=== PATIENT | male | born 1975 ===

== ENCOUNTER 2016-10-15 19:04 | Emergency (ER) | payer OTHER ==
[2016-10-15 19:05] VITALS: BMI 27.8
[2016-10-15 19:46] VITALS: TEMP 98.3; O2SAT 100
--- NOTE | 2016-10-15 20:33 | ED PDOC ---
Arrival/HPI - History of Present Illness Time/Duration: > month Symptom Onset: Gradual Symptom Course: Unchanged Quality: Other (tenderness) Severity Level: 6 Activities at Onset: Rest Context: Sitting <Naun Lockett - Last Filed: 10/15/16 21:39> - General Historian: Patient <Dunia Holland - Last Filed: 10/15/16 22:08> - General Chief Complaint: Abdominal Pain Time Seen by Provider: 10/15/16 19:38 - History of Present Illness Narrative History of Present Illness (Text): 10/15/16 20:33 This is a 41 yr old male with no significant past medical history who comes into [facility] complaining of tenderness and the "sensation of hardening" over the incision sites of his bilateral inguinal hernia repair. The patient is 2 months s/p bilateral inguinal repair with mesh implant reporting no improvement in pain since his surgery. The patient denies any alleviating or modifying factors. The patient denies any fever, chills, nausea , vomiting, chest pain, shortness of breath, discharge from the incision sites, redness or warmth from the incision sites and any other complaints. (Naun Lockett) Past Medical History - Provider Review Nursing Documentation Reviewed: Yes - Infectious Disease Hx of Infectious Diseases: None - Pulmonary Hx Respiratory Disorders: Yes Hx Asthma: Yes (NEVER HOSPITALIZED( "NO NEB. [place] IN AT LEAST A YEAR")) - Musculoskeletal/Rheumatological Hx Musculoskeletal Disorders: Yes Other/Comment: HX: INGUINAL HERNIA-BILAT. - Psychiatric Hx Substance Use: No - Surgical History Other/Comment: Hernia Repair August 05 - Anesthesia Hx Anesthesia: No <Naun Lockett - Last Filed: 10/15/16 21:39> Family/Social History - Physician Review Nursing Documentation Reviewed: Yes Smoking Status: Never Smoked Hx Alcohol Use: Yes Frequency of alcohol use: Socially Hx Substance Use: No <Naun Lockett - Last Filed: 10/15/16 21:39> Family/Social History: No Known Family HX <Dunia Holland - Last Filed: 10/15/16 22:08> Allergies/Home Meds <Naun Lockett - Last Filed: 10/15/16 21:39> <Dunia Holland - Last Filed: 10/15/16 22:08> Allergies/Adverse Reactions: Allergies SEAFOOD Allergy (Severe, Uncoded 07/31/16 08:23) SWELLING Home Medications: Home Meds Medication Instructions Recorded Confirmed Albuterol 0.083% [Albuterol 0.083% 3 ml NEB Q6 PRN 07/31/16 10/15/16 Inhal Jaki (2.5 mg/3 ml) UD] Review of Systems - Review of Systems Constitutional: Normal. absent: Weight Change, Fevers, Night Sweats Eyes: Normal. absent: Vision Changes, Eye Pain ENT: Normal. absent: Tinnitus, Sore Throat Respiratory: Normal. absent: Cough, Sputum, Wheezing Cardiovascular: Normal. absent: Chest Pain, Palpitations, Edema Gastrointestinal: Normal. absent: Constipation, Diarrhea, Nausea, Vomiting Genitourinary Male: Normal. absent: Frequency, Hematuria Musculoskeletal: Other (reports tenderness at the incision sites of his bilaeral inguinal repair). absent: Normal, Back Pain, Neck Pain Skin: Normal. absent: Rash, Skin Lesions, Laceration Neurological: Normal. absent: Headache, Dizziness Endocrine: Normal. absent: Polyuria, Polydipsia <Naun Lockett - Last Filed: 10/15/16 21:39> - Physician Review All systems were reviewed & negative as marked: Yes <Dunia Holland - Last Filed: 10/15/16 22:08> Physical Exam Vital Signs Reviewed: Yes Temperature: Afebrile Blood Pressure: Normal Pulse: Regular Respiratory Rate: Normal Appearance: Positive for: Well-Appearing, Non-Toxic, Comfortable Pain Distress: None Mental Status: Positive for: Alert and Oriented X 3 - Systems Exam Head: Present: Atraumatic, Normocephalic Pupils: Present: PERRL Extroacular Muscles: Present: EOMI. No: Gaze Palsy Conjunctiva: Present: Normal. No: Injected Mouth: Present: Moist Mucous Membranes. No: Drooling Neck: Present: Normal Range of Motion. No: JVD, Lymphadenopathy Respiratory/Chest: Present: Clear to Auscultation, Good Air Exchange. No: Respiratory Distress, Accessory Muscle Use, Wheezes Cardiovascular: Present: Regular Rate and Rhythm, Normal S1, S2. No: Bradycardic Abdomen: Present: Tenderness (appreciated bilaterally at inguinal repair incision sites. no discharge/erythema noted at incision sites.), Normal Bowel Sounds. No: Distention Upper Extremity: Present: Normal Inspection. No: Cyanosis, Edema Lower Extremity: No: Edema, Tenderness, Swelling Neurological: Present: CN II-XII Intact, Speech Normal Skin: Present: Dry, Normal Color. No: Warm, Rashes Psychiatric: Present: Alert, Oriented x 3, Normal Insight <Naun Lockett - Last Filed: 10/15/16 21:39> Medical Decision Making <Naun Lockett - Last Filed: 10/15/16 21:39> <Dunia Holland - Last Filed: 10/15/16 22:08> ED Course and Treatment: 10/15/16 20:49 Patient presents to [facility] complaining of tenderness at the incision site of the inguinal hernia repair. We ordered a CT scan and U/A. The patient will be re-evaluated once results return. Patient given IM Toradol for pain. U/A came back normal. CT Scan showed incidental findings. Overall Normal. (Naun Lockett) 10/15/16 21:39 Patient Seen With Resident: In agreement with resident note which contains more details about the patient. Patient was seen and evaluated with resident. Came up with plan and treatment together. 10/15/16 22:05 Patient with unremarkable post-op site; urine is clear. No tenderness on exam. CT a/p: Postsurgical changes of inguinal regions with small collections. DDX: Seroma, hematoma, less likely abscess. CT results as above - patient given toradol and feels significant relief. Will d/c on naprosyn to follow up his surgeon and will give name of on-call surgeon for referral for second opinion. Ok for d/c. (Dunia Holland) - Lab Interpretations Lab Results: Lab Results 10/15/16 20:35: Urine Color Yellow, Urine Appearance Clear, Urine pH 6.5, Ur Specific Boyle 1.020, Urine Protein Negative, Urine Glucose (UA) Negative, Urine Ketones Negative, Urine Blood Negative, Urine Nitrate Negative, Urine Bilirubin Negative, Urine Urobilinogen 0.2, Ur Leukocyte Esterase Negative - RAD Interpretation Radiology Orders: 10/15/16 20:26 ABD & PELVIS W/O PO OR IV CONT [CT] Stat - Medication Orders Current Medication Orders: Discontinued Medications Ketorolac Tromethamine (Toradol) 60 mg IM STAT STA Stop: 10/15/16 20:32 Last Admin: 10/15/16 21:11 Dose: 60 mg <Naun Lockett - Last Filed: 10/15/16 21:39> - PA / GROUTER HELPER / Resident Statement SAURAV has reviewed & agrees with the documentation as recorded. / has examined the patient and agrees with the treatment plan. - Scribe Statement The provider has reviewed the documentation as recorded by the Scribe <Dunia Holland - Last Filed: 10/15/16 22:08> - Scribe Statement Scarlettrhys Gottliebos Provider Scribe Attestation: All medical record entries made by the Scribe were at my direction and personally dictated by me. I have reviewed the chart and agree that the record accurately reflects my personal performance of the history, physical exam, medical decision making, and the department course for this patient. I have also personally directed, reviewed, and agree with the discharge instructions and disposition. (Dunia Holland) Disposition/Present on Arrival - Present on Arrival Any Indicators Present on Arrival: No History of DVT/PE: No History of Uncontrolled Diabetes: No Urinary Catheter: No History of Decub. Ulcer: No History Surgical Site Infection Following: None - Disposition Have Diagnosis and Disposition been Completed?: Yes Disposition Time: 17:40 Patient Plan: Discharge <Naun Lockett - Last Filed: 10/15/16 21:39> <Dunia Holland - Last Filed: 10/15/16 22:08> - Disposition Diagnosis: Post-operative pain Disposition: HOME/ ROUTINE Patient Problems: Current Active Problems Problem Status Onset Post-operative pain Acute Condition: GOOD Additional Instructions: F/U with with your Surgeon Dr. Seals as scheduled. Take Naproxen for the pain. Avoid heavy lifting. You may f/u with Dr. Valle for a second opinion. Return to Emergency room for any new or concerning symptoms. Prescriptions: Naproxen 500 mg PO BID #20 tab Referrals: Matt Duenas MD [Primary Care Provider] - Follow up with primary Kip Valle MD [Staff Provider] - Follow up with primary Forms: [employer] ([place])
[2016-10-15 21:05] LABS: PH,URINE 6.5 (4.7-8.0); URINE BILIRUBIN NEGATIVE (NEGATIVE); URINE BLOOD NEGATIVE (NEGATIVE); URINE GLUCOSE (UA) NEGATIVE (NEGATIVE); URINE LEUKOCYTE ESTERASE NEGATIVE Leu/uL (NEGATIVE); URINE NITRATE NEGATIVE (NEGATIVE); URINE PROTEIN NEGATIVE mg/dL (<30 mg/dL); URINE UROBILINOGEN 0.2 E.U./dL (<1 E.U./dL)
[2016-10-15 21:11] LABS: URINE APPEARANCE CLEAR (CLEAR); URINE COLOR YELLOW (YELLOW)
--- NOTE | 2016-10-15 21:35 | CT ---
EXAM: CT Abdomen and Pelvis Without Intravenous Contrast CLINICAL HISTORY: 41 years old, male; Pain; Abdominal pain; Acute; Prior surgery; Surgery date: 1-6 months; Surgery type: Inguinal hernia; Additional info: B/l inguinal hernia pain post op TECHNIQUE: Axial computed tomography images of the abdomen and pelvis without intravenous contrast. All CT scans at this facility use one or more dose reduction techniques, viz.: automated exposure control; ma/kV adjustment per patient size (including targeted exams where dose is matched to indication; i.e. head); or iterative reconstruction technique. Coronal and sagittal reformatted images were created and reviewed. COMPARISON: No relevant prior studies available. FINDINGS: Limitations: Lack of intravenous contrast. Lower thorax: Minimal atelectasis/scarring. ABDOMEN: Liver: Too small to characterize lesion. Gallbladder and bile ducts: No calcified stones. No ductal dilation. Pancreas: Unremarkable. No ductal dilation. Spleen: Mild splenomegaly, AP dimension. Adrenals: No mass. Kidneys and ureters: No renal calculi. No hydronephrosis. Stomach and bowel: No definite mural thickening. No obstruction. Appendix: Normal caliber. No inflammation. PELVIS: Bladder: Unremarkable. No stones. Reproductive: Unremarkable as visualized. ABDOMEN and PELVIS: Intraperitoneal space: No significant fluid collection. No free air. Bones/joints: No acute fracture. Soft tissues: Postsurgical changes of inguinal regions. Small fluid collections within pelvis at level of inguinal canals, larger measuring 2.3 x 1.2 x 2.1 cm on LEFT. Tiny umbilical hernia containing fat. Vasculature: Unremarkable. No aneurysm. Lymph nodes: No pathologically enlarged lymph nodes. IMPRESSION: 1. Postsurgical changes of inguinal regions with small collections. DDX: Seroma, hematoma, less likely abscess. 2. Incidental/non-acute findings are described above.
[2016-10-15 21:59] VITALS: BP 133/71; PULSE 72; RESP 18
== END 2016-10-15 22:25 | disposition home or self-care (01) ==
LOC: ED 19:04
DX: G89.18 Other acute postprocedural pain (principal)
CPT/HCPCS: 74176; 81003; 96372; 99283; J1885